=== PATIENT | female | born 1975 | race Caucasian/White ===

== ENCOUNTER → 2016-02-19 | Outpatient (CLI) | payer BC ==
[2016-02-19 12:25] LABS: MEAN CORPUSCULAR HEMOGLOBIN 30.2 pg (27.0-33.0); MEAN CORPUSCULAR HGB CONC 34.2 g/dl (32.0-36.5); MEAN CORPUSCULAR VOLUME 88.2 fl (80.0-96.0); RED CELL DISTRIBUTION WIDTH 12.5 % (11.5-14.5); WHITE BLOOD COUNT 5.2 K/mm3 (4.0-10.0)
[2016-02-19 12:49] LABS: ALBUMIN/GLOBULIN RATIO 0.94 (1.00-1.93); ALKALINE PHOSPHATASE 54 U/L (45-117); ALT/SGPT 28 U/L (12-78); ANION GAP 5 MEQ/L (8-16); AST/SGOT 12 U/L (15-37); BILIRUBIN,TOTAL 0.4 MG/DL (0.2-1.0); BLOOD UREA NITROGEN 14 MG/DL (7-18); CARBON DIOXIDE LEVEL 30 MEQ/L (21-32); CHLORIDE LEVEL 109 MEQ/L (98-107); CHOLESTEROL LEVEL 175 MG/DL (<200); CREATININE FOR GFR 0.73 MG/DL (0.55-1.02); GLOMERULAR FILTRATION RATE > 60.0 (>60); GLUCOSE, FASTING 90 MG/DL (70-105); POTASSIUM SERUM 4.4 MEQ/L (3.5-5.1); SODIUM LEVEL 144 MEQ/L (136-145); THYROXINE (T4) 9.6 UG/DL (4.5-12.0); TOTAL PROTEIN 6.2 GM/DL (6.4-8.2); TRIGLYCERIDES LEVEL 55 MG/DL (<150)
--- NOTE | 2016-02-19 13:39 | REP ---
Clinical: Annual physical . Comparison: 07/28/2014 . Technique: PA and lateral. Findings: The mediastinum and cardiac silhouette are normal. The lung oseguera are clear and without acute consolidation, effusion, or pneumothorax. The skeletal structures are intact and normal. Impression: 1. No acute cardiopulmonary process. Signed by Steven Steele MD 02/19/2016 01:30 P
--- NOTE | 2016-02-19 16:35 | ECGEPIP ---
Stationary ECG Study [facility] Test Date: 2016-02-19 Pat Name: DUYEN MORA Department: Room: - Gender: F Elementary Education Teacher: CHARLA : 1975 Requested By: Jed Low Order Number: [id number] Reading MD: Dominik Suh Measurements Intervals [place] Rate: 59 P: 1 SC: 146 QRS: 89 QRSD: 94 T: 42 QT: 387 QTc: 385 Interpretive Statements SINUS BRADYCARDIA COMPARED TO THE LAST 4 TRACINGS IN THE SYSTEM, HEART RATE IS NOW SLIGHTLY SLOWER OTHERWISE NO SIGNIFICANT CHANGES Electronically Signed On 02-19-2016 16:35:30 EST by Dominik Suh
== END ==
LOC: M LAB 11:33
PROVIDERS: ATTEND Family Medicine
DX: Z00.00 Encounter for general adult medical examination without abnormal findings (principal); D64.9 Anemia, unspecified; E03.9 Hypothyroidism, unspecified; R00.1 Bradycardia, unspecified

== ENCOUNTER → 2017-03-19 | Outpatient (CLI) | payer BC ==
[2017-03-19 17:52] LABS: ALBUMIN 3.6 GM/DL (3.2-5.2); ALBUMIN/GLOBULIN RATIO 1.03 (1.00-1.93); ALKALINE PHOSPHATASE 41 U/L (45-117); ALT/SGPT 29 U/L (12-78); ANION GAP 6 MEQ/L (8-16); AST/SGOT 17 U/L (7-37); BILIRUBIN,TOTAL 0.6 MG/DL (0.2-1.0); BLOOD UREA NITROGEN 13 MG/DL (7-18); CALCIUM LEVEL 8.3 MG/DL (8.5-10.1); CARBON DIOXIDE LEVEL 26 MEQ/L (21-32); CHLORIDE LEVEL 107 MEQ/L (98-107); CHOLESTEROL LEVEL 169 MG/DL (<200); CHOLESTEROL RISK RATIO 2.315 (<5); CREATININE FOR GFR 0.69 MG/DL (0.55-1.30); GLOMERULAR FILTRATION RATE > 60.0 (>58); GLUCOSE, FASTING 84 MG/DL (70-100); HDL CHOLESTEROL 73 MG/DL (>40); IRON (FE) 149 UG/DL (50-170); LDL CHOLESTEROL 84.2 MG/DL (<100); MAGNESIUM LEVEL 2.1 MG/DL (1.8-2.4); NON-HDL-C 96 MG/DL; PERCENT SATURATION 39.9 % (13.2-45.0); POTASSIUM SERUM 4.2 MEQ/L (3.5-5.1); SODIUM LEVEL 139 MEQ/L (136-145); THYROXINE (T4) 12.9 UG/DL (4.5-12.0); TOTAL IRON BINDING CAPACITY 373 UG/DL (250-450); TOTAL PROTEIN 7.1 GM/DL (6.4-8.2); TRIGLYCERIDES LEVEL 59 MG/DL (<150)
[2017-03-19 17:56] LABS: VITAMIN B12 LEVEL 985 PG/ML (247-911)
[2017-03-19 18:00] LABS: HEMATOCRIT 41.3 % (36.0-47.0); HEMOGLOBIN 14.1 g/dl (12.0-16.0); MEAN CORPUSCULAR HEMOGLOBIN 30.8 pg (27.0-33.0); MEAN CORPUSCULAR HGB CONC 34.1 g/dl (32.0-36.5); MEAN CORPUSCULAR VOLUME 90.2 fl (80.0-96.0); PLATELET COUNT, AUTOMATED 154 10^3/uL (150-450); RED BLOOD COUNT 4.58 10^6/uL (4.00-5.40); RED CELL DISTRIBUTION WIDTH 12.3 % (11.5-14.5); WHITE BLOOD COUNT 5.8 10^3/uL (4.0-10.0)
[2017-03-19 18:05] LABS: ESTIMATED AVERAGE GLUCOSE 85 MG/DL (60-110); HEMOGLOBIN A1c 4.6 %
[2017-03-19 19:30] LABS: FOLATE 9.3 NG/ML (>5.4); TOTAL T3 108.2 NG/DL (60.0-181.0)
[2017-03-21 14:13] LABS: HOMOCYST(E)INE SERUM 9.4 umol/L (0.0-15.0)
== END ==
LOC: M WUC 12:24
DX: D64.9 Anemia, unspecified (principal); R53.83 Other fatigue

== ENCOUNTER → 2017-06-05 | Outpatient (CLI) | payer BC ==
[2017-06-05 17:07] LABS: THYROXINE (T4) 14.9 UG/DL (4.5-12.0)
[2017-06-06 08:48] LABS: TOTAL 25(OH) VITAMIN D 38.6 NG/ML (30.0-100.0)
[2017-06-06 10:04] LABS: TOTAL T3 150.9 NG/DL (60.0-181.0)
== END ==
LOC: M WUC 13:43
DX: E03.9 Hypothyroidism, unspecified (principal); R53.83 Other fatigue
CPT/HCPCS: 84443

== ENCOUNTER 2017-07-05 23:07 | Emergency (ER) | payer BC ==
[2017-07-06 01:13] LABS: HEMATOCRIT 38.4 % (36.0-47.0); HEMOGLOBIN 13.5 g/dl (12.0-15.5); MEAN CORPUSCULAR HEMOGLOBIN 30.2 pg (27.0-33.0); MEAN CORPUSCULAR HGB CONC 35.2 g/dl (32.0-36.5); MEAN CORPUSCULAR VOLUME 85.9 fl (80.0-96.0); PLATELET COUNT, AUTOMATED 142 10^3/uL (150-450); RED BLOOD COUNT 4.47 10^6/uL (4.00-5.40); RED CELL DISTRIBUTION WIDTH 11.9 % (11.5-14.5); WHITE BLOOD COUNT 12.3 10^3/uL (4.0-10.0)
[2017-07-06] MEDS ORDERED: ISOVUE-370 76% 100ML VIAL (Q9967) As Ordered (01:21)
[2017-07-06 01:26] LABS: ANION GAP 6 MEQ/L (8-16); BLOOD UREA NITROGEN 10 MG/DL (7-18); CALCIUM LEVEL 8.8 MG/DL (8.5-10.1); CARBON DIOXIDE LEVEL 26 MEQ/L (21-32); CHLORIDE LEVEL 110 MEQ/L (98-107); CREATININE FOR GFR 0.74 MG/DL (0.55-1.30); GLOMERULAR FILTRATION RATE > 60.0 (>58); GLUCOSE, FASTING 125 MG/DL (70-100); POTASSIUM SERUM 4.2 MEQ/L (3.5-5.1); SODIUM LEVEL 142 MEQ/L (136-145)
[2017-07-06] MEDS: MORPHINE 2 MG/ML 1ML SYRINGE (J2270) IV (02:08)
[2017-07-06] MEDS: CLINDAMYCIN 150 MG CAP PO (02:29)
== END 2017-07-06 02:40 | disposition home or self-care (01) ==
LOC: M ED 23:07
DX: K12.2 Cellulitis and abscess of mouth (principal); J01.00 Acute maxillary sinusitis, unspecified; E03.9 Hypothyroidism, unspecified; F90.9 Attention-deficit hyperactivity disorder, unspecified type; Z79.899 Other long term (current) drug therapy; Z79.2 Long term (current) use of antibiotics
CPT/HCPCS: Q9967

== ENCOUNTER 2017-07-06 20:32 | Inpatient (IN) | payer BC ==
[2017-07-06] MEDS: NS 500 ML IV (21:30)
[2017-07-06] MEDS: HYDROCORTISONE INJection 500 MG in NS 50 ML IV (21:45)
[2017-07-06 22:04] LABS: BASO % 0.3 % (0.0-1.0); EOS % 0.1 % (0.0-3.0); HEMATOCRIT 37.2 % (36.0-47.0); HEMOGLOBIN 13.1 g/dl (12.0-15.5); IMMATURE GRANULOCYTE % 0.4 % (0-3.0); LYMPH # 0.5 10^3/uL (1.5-4.5); LYMPH % 6.1 % (24.0-44.0); MEAN CORPUSCULAR HEMOGLOBIN 30.8 pg (27.0-33.0); MEAN CORPUSCULAR HGB CONC 35.2 g/dl (32.0-36.5); MEAN CORPUSCULAR VOLUME 87.3 fl (80.0-96.0); MONO # 0.7 10^3/uL (0.0-0.8); MONO % 8.6 % (0.0-5.0); NEUTROPHILS # 6.7 10^3/uL (1.8-7.7); NEUTROPHILS % 84.5 % (36.0-66.0); PLATELET COUNT, AUTOMATED 122 10^3/uL (150-450); RED BLOOD COUNT 4.26 10^6/uL (4.00-5.40); RED CELL DISTRIBUTION WIDTH 11.9 % (11.5-14.5); WHITE BLOOD COUNT 7.9 10^3/uL (4.0-10.0)
[2017-07-06] MEDS: ONDANSETRON 4MG/2ML VIAL (J2405) IV (22:14)
[2017-07-06] MEDS: KETOROLAC 30 MG/ML VIAL (J1885) IV (22:14)
[2017-07-06] MEDS: AMPICILLIN SOD/SULBACTAM SOD 1.5 GM in D5W MINI-BAG PLUS 50 ML IV (22:15)
[2017-07-06 22:22] LABS: ANION GAP 7 MEQ/L (8-16); BLOOD UREA NITROGEN 8 MG/DL (7-18); CALCIUM LEVEL 8.1 MG/DL (8.5-10.1); CARBON DIOXIDE LEVEL 26 MEQ/L (21-32); CHLORIDE LEVEL 105 MEQ/L (98-107); CREATININE FOR GFR 0.79 MG/DL (0.55-1.30); GLOMERULAR FILTRATION RATE > 60.0 (>58); GLUCOSE, FASTING 140 MG/DL (70-100); POTASSIUM SERUM 3.9 MEQ/L (3.5-5.1); SODIUM LEVEL 138 MEQ/L (136-145)
[2017-07-06] MEDS: NS 1,000 ML IV (22:27)
[2017-07-06] MEDS ORDERED: PERCOCET 5MG/325MG TAB PO (22:30)
[2017-07-07] MEDS: dexameTHASONE 4 MG/ML 1ML VIAL (J1100) IV ×4 (01:00→18:18)
[2017-07-07] MEDS ORDERED: AMPICILLIN SOD/SULBACTAM SOD 1.5 GM in D5W MINI-BAG PLUS 50 ML IV (04:00)
[2017-07-07] MEDS: AMPICILLIN SOD/SULBACTAM SOD 1.5 GM in D5W MINI-BAG PLUS 50 ML IV ×4 (05:06→21:29)
[2017-07-07] MEDS: KETOROLAC 30 MG/ML VIAL (J1885) IV ×3 (05:38→18:21)
[2017-07-07 07:17] LABS: BASO % 0.1 % (0.0-1.0); HEMATOCRIT 41.7 % (36.0-47.0); HEMOGLOBIN 14.5 g/dl (12.0-15.5); IMMATURE GRANULOCYTE % 0.4 % (0-3.0); LYMPH # 0.6 10^3/uL (1.5-4.5); LYMPH % 5.8 % (24.0-44.0); MEAN CORPUSCULAR HEMOGLOBIN 30.5 pg (27.0-33.0); MEAN CORPUSCULAR HGB CONC 34.8 g/dl (32.0-36.5); MEAN CORPUSCULAR VOLUME 87.6 fl (80.0-96.0); MONO # 0.2 10^3/uL (0.0-0.8); MONO % 1.5 % (0.0-5.0); NEUTROPHILS # 9.5 10^3/uL (1.8-7.7); NEUTROPHILS % 92.2 % (36.0-66.0); PLATELET COUNT, AUTOMATED 155 10^3/uL (150-450); RED BLOOD COUNT 4.76 10^6/uL (4.00-5.40); RED CELL DISTRIBUTION WIDTH 11.9 % (11.5-14.5); WHITE BLOOD COUNT 10.3 10^3/uL (4.0-10.0)
[2017-07-07 07:32] LABS: ANION GAP 8 MEQ/L (8-16); BLOOD UREA NITROGEN 9 MG/DL (7-18); CALCIUM LEVEL 8.4 MG/DL (8.5-10.1); CARBON DIOXIDE LEVEL 25 MEQ/L (21-32); CHLORIDE LEVEL 106 MEQ/L (98-107); CREATININE FOR GFR 0.88 MG/DL (0.55-1.30); GLOMERULAR FILTRATION RATE > 60.0 (>58); GLUCOSE, FASTING 153 MG/DL (70-100); POTASSIUM SERUM 3.9 MEQ/L (3.5-5.1); SODIUM LEVEL 139 MEQ/L (136-145)
[2017-07-07] MEDS ORDERED: ISOVUE-370 76% 100ML VIAL (Q9967) As Ordered (07:44)
[2017-07-07] MEDS: NS 1,000 ML IV ×2 (09:22→21:30)
[2017-07-07] MEDS: THYROID 15 MG PO (09:23)
[2017-07-07] MEDS: ENOXAPARIN 40 MG/0.4 ML SYRINGE (J1650) SC (09:24)
[2017-07-08] MEDS: dexameTHASONE 4 MG/ML 1ML VIAL (J1100) IV (00:02)
[2017-07-08] MEDS: KETOROLAC 30 MG/ML VIAL (J1885) IV ×3 (00:03→20:21)
[2017-07-08] MEDS: NS 1,000 ML IV (04:27)
[2017-07-08] MEDS: AMPICILLIN SOD/SULBACTAM SOD 1.5 GM in D5W MINI-BAG PLUS 50 ML IV ×4 (04:57→22:46)
[2017-07-08] MEDS: ACETAMINOPHEN TAB 650MG DOSE (2X325MG) PO ×2 (07:07→20:18)
[2017-07-08 07:25] LABS: BASO % 0.1 % (0.0-1.0); HEMATOCRIT 33.4 % (36.0-47.0); IMMATURE GRANULOCYTE % 0.5 % (0-3.0); LYMPH # 0.7 10^3/uL (1.5-4.5); LYMPH % 6.3 % (24.0-44.0); MEAN CORPUSCULAR HEMOGLOBIN 30.5 pg (27.0-33.0); MEAN CORPUSCULAR VOLUME 87.2 fl (80.0-96.0); MONO # 0.6 10^3/uL (0.0-0.8); MONO % 5.1 % (0.0-5.0); PLATELET COUNT, AUTOMATED 131 10^3/uL (150-450); RED BLOOD COUNT 3.83 10^6/uL (4.00-5.40); RED CELL DISTRIBUTION WIDTH 11.9 % (11.5-14.5); WHITE BLOOD COUNT 11.4 10^3/uL (4.0-10.0)
[2017-07-08 07:34] LABS: HEMOGLOBIN 11.7 g/dl (12.0-15.5)
[2017-07-08 07:50] LABS: ANION GAP 7 MEQ/L (8-16); BLOOD UREA NITROGEN 15 MG/DL (7-18); CALCIUM LEVEL 7.6 MG/DL (8.5-10.1); CARBON DIOXIDE LEVEL 24 MEQ/L (21-32); CHLORIDE LEVEL 113 MEQ/L (98-107); CREATININE FOR GFR 0.61 MG/DL (0.55-1.30); GLOMERULAR FILTRATION RATE > 60.0 (>58); GLUCOSE, FASTING 127 MG/DL (70-100); POTASSIUM SERUM 4.1 MEQ/L (3.5-5.1); SODIUM LEVEL 144 MEQ/L (136-145)
[2017-07-08] MEDS: ENOXAPARIN 40 MG/0.4 ML SYRINGE (J1650) SC (09:00)
[2017-07-08] MEDS: THYROID 15 MG PO (09:11)
[2017-07-09] MEDS: AMPICILLIN SOD/SULBACTAM SOD 1.5 GM in D5W MINI-BAG PLUS 50 ML IV ×2 (04:52→10:01)
[2017-07-09] MEDS: ENOXAPARIN 40 MG/0.4 ML SYRINGE (J1650) SC (08:53)
[2017-07-09] MEDS: THYROID 15 MG PO (08:53)
== END 2017-07-09 11:00 | disposition home or self-care (01) | DRG 114 ==
LOC: M PED 07-07 00:41 → M ED 20:32 → M ED INP 22:27
DX: K04.7 Periapical abscess without sinus (principal); E03.9 Hypothyroidism, unspecified; J01.00 Acute maxillary sinusitis, unspecified; Z79.899 Other long term (current) drug therapy

== ENCOUNTER → 2017-08-19 | Outpatient (CLI) | payer BC | LOC: M RAD 07:45 | DX: Z12.31 Encounter for screening mammogram for malignant neoplasm of breast (principal) | CPT/HCPCS: 77067 ==

== ENCOUNTER → 2018-09-26 | Outpatient (CLI) | payer BC ==
[~2018-09-26] MED LIST: ADDE20CA3 PO; CLEO300C2 PO; CLIN150C14 PO; HYDR-3715 PO; NORC1TAB7 PO; THYR15TA PO
--- NOTE | 2018-09-26 10:33 | ECGEPIP ---
[facility] Test Date: 2018-09-26 Pat Name: DUYEN MORA Department: Room: - Gender: Female Data Developer: TANIA : 1975 Requested By: Jed Low Order Number: [id number] Reading MD: Vitor Link Measurements Intervals [place] Rate: 60 P: 2 CT: 170 QRS: 79 QRSD: 97 T: 39 QT: 386 QTc: 386 Interpretive Statements Normal sinus rhythm Incomplete right bundle branch block No significant change when compared to prior tracing of 02/19/2016 Electronically Signed on 09-26-2018 10:33:30 EDT by Vitor Link
[2018-09-26 11:03] LABS: HEMATOCRIT 41.6 % (36.0-47.0); HEMOGLOBIN 14.3 g/dl (12.0-15.5); MEAN CORPUSCULAR HEMOGLOBIN 30.7 pg (27.0-33.0); MEAN CORPUSCULAR HGB CONC 34.4 g/dl (32.0-36.5); MEAN CORPUSCULAR VOLUME 89.3 fl (80.0-96.0); PLATELET COUNT, AUTOMATED 145 10^3/uL (150-450); RED BLOOD COUNT 4.66 10^6/uL (4.00-5.40)
[2018-09-26 11:21] LABS: HEMOGLOBIN A1c 5.4 %
--- NOTE | 2018-09-26 11:25 | REP ---
REASON: Hypertension and fatigue. COMPARISON: 02/19/2016 FINDINGS: The superior mediastinal structures are midline. The cardiac silhouette is unremarkable in size, shape, and position. The diaphragmatic surfaces of the lungs are regular, and the costophrenic angles are clear. The pulmonary oseguera are clear. The imaged osseous structures are intact. IMPRESSION: There is no acute cardiopulmonary disease. Electronically Signed by Flako Marlow DO 09/26/2018 12:57 P
[2018-09-26 11:42] LABS: ALBUMIN 3.3 GM/DL (3.2-5.2); ALT/SGPT 28 U/L (12-78); BILIRUBIN,TOTAL 0.4 MG/DL (0.2-1.0); BLOOD UREA NITROGEN 16 MG/DL (7-18); CALCIUM LEVEL 8.6 MG/DL (8.5-10.1); CARBON DIOXIDE LEVEL 28 MEQ/L (21-32); CHLORIDE LEVEL 108 MEQ/L (98-107); CHOLESTEROL LEVEL 204 MG/DL (<200); CHOLESTEROL RISK RATIO 2.956 (<5); CREATININE FOR GFR 0.87 MG/DL (0.55-1.30); GLOMERULAR FILTRATION RATE > 60.0 (>58); GLUCOSE, FASTING 91 MG/DL (70-100); HDL CHOLESTEROL 69 MG/DL (>40); IRON (FE) 134 UG/DL (50-170); LDL CHOLESTEROL 122 MG/DL (<100); NON-HDL-C 135 MG/DL; PERCENT SATURATION 35.9 % (13.2-45.0); POTASSIUM SERUM 4.4 MEQ/L (3.5-5.1); SODIUM LEVEL 140 MEQ/L (136-145); TOTAL IRON BINDING CAPACITY 373 UG/DL (250-450); TOTAL PROTEIN 6.8 GM/DL (6.4-8.2); TRIGLYCERIDES LEVEL 65 MG/DL (<150)
[2018-09-28 11:00] LABS: TOTAL 25(OH) VITAMIN D 32.4 NG/ML (30.0-100.0)
== END ==
LOC: M LAB 10:13
PROVIDERS: ATTEND Family Medicine
DX: I10 Essential (primary) hypertension (principal); R53.83 Other fatigue

== ENCOUNTER → 2018-11-30 | Outpatient (CLI) | payer BC ==
--- NOTE | 2018-12-01 09:24 | REPMRS ---
Patient History The patient states she had a clinical breast exam in November 2018.Family history of unknown cancer in mother. Took hormonal contraceptives for 4 years. Took unspecified hormones for 4 years. Digital Mammo Screening Bilat: November 30, 2018 - Exam #: [id number] Bilateral CC and MLO view(s) were taken. Technologist: Olinda Bear, Technologist Prior study comparison: August 19, 2017, bilateral digital mammo screening bilat performed at [facility]. February 14, 2016, bilateral digital mammo screening bilat performed at [facility]. December 12, 2014, digital bilateral screening mammo, performed at [facility]. FINDINGS: The breast tissue is heterogeneously dense. This may lower the sensitivity of mammography. There are two sub centimeter nodular neodensities in the right breast which merit further evaluation. One is in the upper outer quadrant, 9 mm; and the other one appears to project inferiorly and medially, 7 mm. There is a moderate amount of heterogeneously dense fibroglandular tissue which is fairly symmetric. There is no interval development of dominant mass, architectural distortion, or grouped microcalcification typical of malignancy. There has been no change in the appearance of the mammogram from the prior studies. 3-D tomosynthesis shows no additional findings. Assessment: BI-RADS/ACR category 0 mammogram, Incomplete: Need additional imaging evaluation and/or prior mammograms for comparison. Recommendation Ultrasound and special view mammogram of the right breast. This patient's Lifetime Breast Cancer RIsk is estimated at 8.6 %. This mammogram was interpreted with the aid of an FDA-approved computer-aided dectection system. Electronically Signed By: Migue Engle MD 12/01/18 0923
== END ==
LOC: M RAD 17:05
PROVIDERS: ATTEND Family Medicine
DX: Z12.31 Encounter for screening mammogram for malignant neoplasm of breast (principal)

== ENCOUNTER → 2018-12-03 | Outpatient (CLI) | payer BC ==
--- NOTE | 2018-12-03 17:55 | REP ---
Digital diagnostic unilateral right breast mammography with CAD and focused right breast sonography: History: Screening mammography November 30, 2018 was BIRADS category 0 because of two nodular neodensities for which diagnostic imaging was recommended. Comparison is also made with prior mammography August 19, 2017 and February 14, 2016. Findings: Magnified focal spot compression CC, true ML, and MLO views of the right breast confirm the presence of the nodular density seen on screening mammographic views. They are best displayed on tomography. Breast parenchyma remains heterogeneously dense. No microcalcification is seen. Sonographic findings: The right breast is scanned in the inferomedial quadrant from 3 o'clock to 6 o'clock. At approximately 6 o'clock, a 0.5 cm simple cyst is seen which is felt to account for the mammographic opacity in this location. No sonographically suspicious finding. The right breast is also scanned in the upper outer quadrant from 9 o'clock to 12 o'clock. At 9 o'clock, there is a 6 x 6 x 6 mm cyst 4.7 cm from the nipple which is felt to account for the other mammographic opacity. No suspicious sonographic finding. Impression: BIRADS category II benign findings. Two cysts identified in the right breast corresponding to the mammographic densities. Repeat screening mammography recommended in one year. BIRADS 2: BI-RADS/ACR category 2 mammogram. Benign Findings. This mammogram was interpreted with the aid of an FDA-approved computer-aided detection system. The patient states she had a clinical breast exam in November 2018. The patient letter being requested is m1. Electronically Signed by Jonathan Engle MD 12/03/2018 06:32 P
== END ==
LOC: M RAD 14:08
PROVIDERS: ATTEND Family Medicine
DX: N60.01 Solitary cyst of right breast (principal)

== ENCOUNTER → 2020-07-14 | Outpatient (CLI) | payer BC ==
[~2020-07-14] MED LIST changes: -CLIN150C14 PO; +CLIN150C15 PO
--- NOTE | 2020-07-14 11:10 | REP ---
INDICATION: RT BREAST LUMP. COMPARISON: Mammography is reviewed from 30 November 2018 and August 19, 2017. TECHNIQUE: A skin marker was affixed to the skin at the site of the palpable lump in the right breast. Routine views of the right breast are augmented by magnified focal spot-compression images. 3D tomography was deployed bilaterally. Targeted right breast sonography was carried out. FINDINGS: Breast parenchyma is heterogeneously dense in a pattern which may inhibit the sensitivity of mammography. No dominant density is seen at this site of the palpable lump in the right breast. The rounded density observed on 03 December 2018 has regressed. No architectural distortion or microcalcification is observed in either breast. No worrisome skin changes seen. The Volpara volumetric breast density pattern is D. Targeted right breast sonography: The right breast is scanned from 9:00 to 11:00 through the a palpable abnormality region. At 10 o'clock, there is a 8 x 5 x 9 mm anechoic lesion consistent with a cyst. This is located 5.3 cm from the nipple. It displays low shear wave elastography numbers, 36.9 KPA. I note that a cyst was identified at 9 o'clock in the right breast on prior right breast sonography from December 03, 2018.. IMPRESSION: BIRADS/ACR category 2 benign mammographic and right breast sonographic findings. Cyst seen in the right breast at the site of the palpable lump. This patient's Tyrer-Cuzick lifetime breast cancer risk assessment score is 8.3%. This mammogram was interpreted with the aid of an FDA-approved computer-aided detection system. The patient states that she/he has not had a clinical breast exam in over a year. The patient letter being requested is M2 dense. RECOMMENDATION: Repeat screening mammography recommended 1 year (for women over 40). Clinical follow-up. <Electronically signed by Migue Engle > 07/14/20 [id number]
== END ==
LOC: M WHC 08:05
PROVIDERS: ATTEND Family Medicine
DX: N60.01 Solitary cyst of right breast (principal)

== ENCOUNTER → 2020-09-14 | Outpatient (CLI) | payer BC ==
--- NOTE | 2020-09-14 11:49 | REP ---
INDICATION: FATIGUE. COMPARISON: September 26, 2018. TECHNIQUE: Two views.. FINDINGS: The lungs are well inflated and free of infiltrate. The pleural angles are sharp. The heart size is normal. Pulmonary vasculature is not increased. No significant bony abnormality is seen. There is a mild dextroconvex lower thoracic curvature unchanged. IMPRESSION: No active disease.. <Electronically signed by Migue Engle > 09/14/20 [id number]
--- NOTE | 2020-09-14 11:56 | REP ---
INDICATION: FATIGUE. COMPARISON: None. TECHNIQUE: Four views of the paranasal sinuses are acquired. PA, lateral, water's act, and submental vertex projections are included. FINDINGS: Sphenoid and ethmoid sinuses are clear. Maxillary and frontal sinuses are symmetric and clear. Mastoid aeration is normal and symmetric. Bony nasal septum is essentially midline. Bony orbital and paranasal sinus margins are intact. No mandibular or maxillary bone lesion is seen. IMPRESSION: Negative paranasal sinus radiographs. <Electronically signed by Migue Engle > 09/14/20 [id number]
[2020-09-14 16:45] LABS: HEMATOCRIT 40.7 % (36.0-47.0); HEMOGLOBIN 13.5 g/dl (12.0-15.5); MEAN CORPUSCULAR HEMOGLOBIN 30.7 pg (27.0-33.0); MEAN CORPUSCULAR HGB CONC 33.2 g/dl (32.0-36.5); MEAN CORPUSCULAR VOLUME 92.5 fl (80.0-96.0); PLATELET COUNT, AUTOMATED 117 10^3/uL (150-450)
[2020-09-14 16:52] LABS: ALBUMIN 3.1 GM/DL (3.2-5.2); ALT/SGPT 18 U/L (12-78); BILIRUBIN,TOTAL 0.3 MG/DL (0.2-1.0); BLOOD UREA NITROGEN 14 MG/DL (7-18); CARBON DIOXIDE LEVEL 30 MEQ/L (21-32); CHLORIDE LEVEL 109 MEQ/L (98-107); CHOLESTEROL LEVEL 167 MG/DL (<200); CHOLESTEROL RISK RATIO 2.352 (<5); CREATININE FOR GFR 0.67 MG/DL (0.55-1.30); GLOMERULAR FILTRATION RATE > 60.0 (>58); GLUCOSE, FASTING 95 MG/DL (70-100); HDL CHOLESTEROL 71 MG/DL (>40); IRON (FE) 76 UG/DL (50-170); LDL CHOLESTEROL 90 MG/DL (<100); NON-HDL-C 96 MG/DL; PERCENT SATURATION 25.2 % (13.2-45.0); POTASSIUM SERUM 4.2 MEQ/L (3.5-5.1); SODIUM LEVEL 141 MEQ/L (136-145); TOTAL IRON BINDING CAPACITY 302 UG/DL (250-450); TOTAL PROTEIN 6.2 GM/DL (6.4-8.2); TRIGLYCERIDES LEVEL 30 MG/DL (<150)
[2020-09-14 16:57] LABS: TOTAL 25(OH) VITAMIN D 40.9 NG/ML (30.0-100.0); VITAMIN B12 LEVEL 398 PG/ML (247-911)
== END ==
LOC: M WUC 10:41
PROVIDERS: ATTEND Family Medicine
DX: D64.9 Anemia, unspecified (principal); R53.83 Other fatigue

== ENCOUNTER → 2022-02-01 | Outpatient (CLI) | payer BC ==
[~2022-02-01] MED LIST changes: -CLIN150C15 PO; +CLIN150C17 PO
== END ==
LOC: M WHC 06:57
PROVIDERS: ATTEND Nurse Practitioner Family
DX: Z12.31 Encounter for screening mammogram for malignant neoplasm of breast (principal)

== ENCOUNTER → 2022-02-06 | Outpatient (CLI) | payer BC | LOC: M WHC 15:11 | PROVIDERS: ATTEND Nurse Practitioner Family | DX: Z12.31 Encounter for screening mammogram for malignant neoplasm of breast (principal) ==

== ENCOUNTER → 2023-03-24 | Outpatient (CLI) | payer BC | LOC: M WHC 07:26 | PROVIDERS: ATTEND Nurse Practitioner Family | DX: Z12.31 Encounter for screening mammogram for malignant neoplasm of breast (principal) ==

== ENCOUNTER → 2024-04-21 | Outpatient (CLI) | payer BC | LOC: M WHC 15:35 | PROVIDERS: ATTEND Nurse Practitioner Family | DX: Z12.31 Encounter for screening mammogram for malignant neoplasm of breast (principal) ==